=== PATIENT | male | born 1960 | race Caucasian/White ===

== ENCOUNTER 2017-04-09 20:09 | Emergency (ER) | payer BC ==
[2017-04-09] MEDS ORDERED: RX INFO: IV CONTRAST WAS GIVEN 1 EACH MISC MISCELLANE PRN (20:24)
[2017-04-09] MEDS ORDERED: DIPH,PERTUS(ACELL)TETVAC-LF 0.5 ML VIAL IM ONE (20:25)
--- NOTE | 2017-04-09 20:36 | ED ---
Fall HPI - General Source: patient, EMS, RN notes reviewed - History of Present Illness MD Complaint: fall <Rodo Ortiz - Last Filed: 04/09/17 21:12> <Rao Dey - Last Filed: 04/09/17 22:34> - General Stated Complaint: Fall Time Seen by Provider: 04/09/17 20:09 - History of Present Illness Initial Comments: This is a 56-year-old male history of hypercholesterolemia no other major medical issues who apparently fell out of a tree stand sometime yesterday was about 12 feet off the ground he states his safety her broke he fell about 12 feet landing on his feet he fell backwards and landed on a log. He had some pain to the right side of his upper back. He denies any head neck or other injuries. The patient apparently went about his business went home and slept last night got up today and apparently went out again but now complain of increased pain to his right upper chest also some ecchymosis was noted around his eyes and he had swelling to his right hand. He still does not believe he hit his head or headache neck pain no abdominal pain no loss of function is upper or lower extremities. He was given morphine and route by paramedics. He is not ALLERGIC last tetanus shot was. He original injury occurred over 24 hours ago. (Rodo Ortiz) - Related Data Home Medications Medication Instructions Recorded Confirmed No Known Home Medications [No 04/09/17 04/09/17 Known Home Medications] Allergies Allergy/AdvReac Type Severity Reaction Status Date / Time No Known Allergies Allergy Verified 04/09/17 20:26 Review of Systems ROS Other: All systems not noted in ROS Statement are negative. <Rodo Ortiz - Last Filed: 04/09/17 21:12> ROS Other: All systems not noted in ROS Statement are negative. <Rao Dey - Last Filed: 04/09/17 22:34> ROS Statement: Those systems with pertinent positive or pertinent negative responses have been documented in the HPI. General Exam Limitations: no limitations General appearance: alert, lethargic Head exam: Present: normocephalic, other (Lateral orbital ecchymosis no step- off no crepitation or abrasion seen over the right forehead and temporal scalp no open wounds requiring suturing repair no formed by step-off or crepitation) Eye exam: Present: PERRL ENT exam: Present: normal exam, mucous membranes moist Neck exam: Present: normal inspection, other (C-collar is present). Absent: tenderness, lymphadenopathy Respiratory exam: Present: chest wall tenderness (Is palpation of the right lateral and posterior superior chest wall but no step-off or crepitation), decreased breath sounds Cardiovascular Exam: Present: regular rate, normal rhythm, normal heart sounds. Absent: systolic murmur, diastolic murmur, rubs, gallop, clicks GI/Abdominal exam: Present: soft, normal bowel sounds. Absent: distended, tenderness, guarding, rebound, rigid Rectal exam: Present: deferred Extremities exam: Present: full ROM, tenderness, normal capillary refill, other (Some ecchymosis and edema to the right dorsal hand no step-off or crepitation) Back exam: Present: normal inspection, full ROM. Absent: tenderness, CVA tenderness (R), CVA tenderness (L), muscle spasm, paraspinal tenderness, vertebral tenderness Psychiatric exam: Present: normal affect, normal mood Skin exam: Present: warm, dry, normal color. Absent: intact <Rodo Ortiz - Last Filed: 04/09/17 21:12> <Rao Dey - Last Filed: 04/09/17 22:34> - General Exam Comments Initial Comments: This is a well up well-nourished awake alert oriented 3 male [place] Coma Scale 15 (Rodo Ortiz) Course <Rodo Ortiz - Last Filed: 04/09/17 21:12> <Rao Dey - Last Filed: 04/09/17 22:34> Vital Signs 04/09/17 04/09/17 04/09/17 20:25 21:01 21:26 Temperature 99.7 F H Pulse Rate 81 74 71 Respiratory 16 16 16 Rate Blood Pressure 133/79 134/71 121/71 O2 Sat by Pulse 97 100 100 Oximetry 04/09/17 22:00 Temperature Pulse Rate 69 Respiratory 16 Rate Blood Pressure 134/81 O2 Sat by Pulse 98 Oximetry Patient and the family requested to be transferred to [facility], called and spoke with Dr. Williamson ER physician at [facility], she said she will discuss this with our trauma surgeon and then she will call me back, [facility] called me back at 2209, they are unable to accept the patient because they don't have all the necessary services they recommend that we call [facility]. Family wanted to go to [facility], but unfortunately [facility] does not take ER to ER transfer is now at 2214 I am trying to get hold of [facility] in the meantime patient had Rocephin 2 g IV pain medications and he also had his tetanus updated . (Rao Dey) - Reevaluation(s) Reevaluation #1: 04/09/17 21:12 The patient's case is endorsed to Dr. Dey at our shift change (Rodo Ortiz) 04/09/17 22:[address] Jose from [facility] accepted the patient him a patient is hemodynamically stable his pulse is 70 respiratory rate is 16 blood pressure 134/76 GCS is 15 H the ambulance and be heading to [facility] , patient and the family are agreeable with (Rao Dey) Medical Decision Making - Lab Data Result diagrams: 04/09/17 20:15 04/09/17 20:15 - EKG Data -: EKG Interpreted by Me EKG shows normal: sinus rhythm (Sinus rhythm rate 78. Interval 144 QRS 16 QT since QTC of 42/458 and complete right bundle-branch block no acute ST-T wave changes artifact is present) <Rodo Ortiz - Last Filed: 04/09/17 21:12> - Lab Data Result diagrams: 04/09/17 20:15 04/09/17 20:15 <Rao Dey - Last Filed: 04/09/17 22:34> - Lab Data Lab Results 04/09/17 04/09/17 04/09/17 Range/Units 20:15 20:15 20:15 WBC (3.8-10.6) k/uL RBC (4.30-5.90) m/uL Hgb (13.0-17.5) gm/dL Hct (39.0-53.0) % MCV (80.0-100.0) fL MCH (25.0-35.0) pg MCHC (31.0-37.0) g/dL RDW (11.5-15.5) % Plt Count (150-450) k/uL Neutrophils % % Lymphocytes % % Monocytes % % Eosinophils % % Basophils % % Neutrophils # (1.3-7.7) k/uL Lymphocytes # (1.0-4.8) k/uL Monocytes # (0-1.0) k/uL Eosinophils # (0-0.7) k/uL Basophils # (0-0.2) k/uL PT (9.0-12.0) sec INR (<1.2) APTT (22.0-30.0) sec Sodium 138 (137-145) mmol/L Potassium 4.6 (3.5-5.1) mmol/L Chloride 104 (98-107) mmol/L Carbon Dioxide 24 (22-30) mmol/L Anion Gap 10 mmol/L BUN 25 H (9-20) mg/dL Creatinine 1.20 (0.66-1.25) mg/dL Est GFR (MDRD) Af Amer >60 (>60 ml/min/1.73 sqM) Est GFR (MDRD) Non-Af >60 (>60 ml/min/1.73 sqM) Glucose 108 H (74-99) mg/dL Calcium 9.7 (8.4-10.2) mg/dL Total Bilirubin 1.1 (0.2-1.3) mg/dL AST 81 H (17-59) U/L ALT 57 (21-72) U/L Alkaline Phosphatase 68 (38-126) U/L Total Creatine Kinase 2147 H (55-170) U/L CK-MB (CK-2) 18.1 H* (0.0-2.4) ng/mL CK-MB (CK-2) Rel Index Troponin I <0.012 (0.000-0.034) ng/mL Total Protein 7.0 (6.3-8.2) g/dL Albumin 4.4 (3.5-5.0) g/dL Serum Alcohol <10 mg/dL Blood Type A Positive Blood Type Confirm Blood Type Recheck CABO Indicated Antibody Screen NEGATIVE Spec Expiration Date 04/12/2017 - 231404/09/17 04/09/17 04/09/17 Range/Units 20:15 20:15 21:52 WBC 13.7 H (3.8-10.6) k/uL RBC 4.92 (4.30-5.90) m/uL Hgb 15.0 (13.0-17.5) gm/dL Hct 44.6 (39.0-53.0) % MCV 90.5 (80.0-100.0) fL MCH 30.4 (25.0-35.0) pg MCHC 33.6 (31.0-37.0) g/dL RDW 14.2 (11.5-15.5) % Plt Count 302 (150-450) k/uL Neutrophils % 81 % Lymphocytes % 11 % Monocytes % 6 % Eosinophils % 1 % Basophils % 0 % Neutrophils # 11.1 H (1.3-7.7) k/uL Lymphocytes # 1.5 (1.0-4.8) k/uL Monocytes # 0.9 (0-1.0) k/uL Eosinophils # 0.1 (0-0.7) k/uL Basophils # 0.0 (0-0.2) k/uL PT 11.1 (9.0-12.0) sec INR 1.1 (<1.2) APTT 24.9 (22.0-30.0) sec Sodium (137-145) mmol/L Potassium (3.5-5.1) mmol/L Chloride (98-107) mmol/L Carbon Dioxide (22-30) mmol/L Anion Gap mmol/L BUN (9-20) mg/dL Creatinine (0.66-1.25) mg/dL Est GFR (MDRD) Af Amer (>60 ml/min/1.73 sqM) Est GFR (MDRD) Non-Af (>60 ml/min/1.73 sqM) Glucose (74-99) mg/dL Calcium (8.4-10.2) mg/dL Total Bilirubin (0.2-1.3) mg/dL AST (17-59) U/L ALT (21-72) U/L Alkaline Phosphatase (38-126) U/L Total Creatine Kinase (55-170) U/L CK-MB (CK-2) (0.0-2.4) ng/mL CK-MB (CK-2) Rel Index Troponin I (0.000-0.034) ng/mL Total Protein (6.3-8.2) g/dL Albumin (3.5-5.0) g/dL Serum Alcohol mg/dL Blood Type Blood Type Confirm A Positive Blood Type Recheck Antibody Screen Spec Expiration Date Disposition <Rodo Ortiz - Last Filed: 04/09/17 21:12> - Out of Hospital Transfer - Req. Specs Out of Hospital Transfer - Requested Specifics: Other Emergency Center (He said would be transfer to [facility], accepting physician is Dr. 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
[2017-04-09 20:37] VITALS: RESP 16
[2017-04-09 20:44] LABS: Basophils % (A) 0 %; CH 30.2; CHCM 33.6; Eosinophils # (A) 0.1 k/uL (0-0.7); Eosinophils % (A) 1 %; HCT 44.6 % (39.0-53.0); HDW 2.45; Luc # (Auto) 0.05; Luc % (Auto) 0; Lymphocytes # (A) 1.5 k/uL (1.0-4.8); Lymphocytes % (A) 11 %; MCH 30.4 pg (25.0-35.0); MCHC 33.6 g/dL (31.0-37.0); MCV 90.5 fL (80.0-100.0); Mean Platelet Volume 7.8; Monocytes # (A) 0.9 k/uL (0-1.0); Monocytes % (A) 6 %; Neutrophils # (A) 11.1 k/uL (1.3-7.7); Neutrophils % (A) 81 %; RBC 4.92 m/uL (4.30-5.90); RDW 14.2 % (11.5-15.5); WBC 13.7 k/uL (3.8-10.6); WBC (Perox) 13.89
--- NOTE | 2017-04-09 20:51 | XR ---
EXAMINATION TYPE: XR chest 1V portable DATE OF EXAM: 04/09/2017 Comparison: Clinical History: 56-year-old male with trauma, fell from a tree stand yesterday, generalized pain Findings: Heart is normal size. Aorta and pulmonary vasculature within normal limits. Normal variant azygos fis sure. There is some focal patchy peripheral right basilar opacity. Also, somewhat thickened appearanc e to the superior mediastinum. No pleural effusion or pneumothorax. Impression: 1. Some patchy peripheral right basilar atelectasis or contusion. 2. Slightly thickened appearance to the superior mediastinum probably projectional due to AP techniqu e. If chest pain or concern for aneurysm or acute aortic pathology, CT can be performed.
--- NOTE | 2017-04-09 20:52 | XR ---
EXAMINATION TYPE: XR pelvis AP view DATE OF EXAM: 04/09/2017 COMPARISON: NONE HISTORY: 56-year-old male with trauma after falling out of tree stand, generalized pain TECHNIQUE: Single view FINDINGS: Hips appear symmetric and intact. Pubic symphysis is intact. Small delineation to the arcuate lines o f the sacrum. SI joints are intact. No acute fracture or dislocation seen. IMPRESSION: No acute osseous abnormality seen.
[2017-04-09 20:53] LABS: ALT 57 U/L (21-72); AST 81 U/L (17-59); Alcohol <10 mg/dL; Alkaline Phosphatase 68 U/L (38-126); Anion Gap 10 mmol/L; Blood Urea Nitrogen 25 mg/dL (9-20); Calcium 9.7 mg/dL (8.4-10.2); Carbon Dioxide 24 mmol/L (22-30); Chloride 104 mmol/L (98-107); Glucose 108 mg/dL (74-99); INR 1.1 (<1.2); Non-African American GFR(MDRD) >60 (>60 ml/min/1.73 sqM); Partial Thromboplastin Time 24.9 sec (22.0-30.0); Potassium 4.6 mmol/L (3.5-5.1); Prothrombin Time 11.1 sec (9.0-12.0); Sodium 138 mmol/L (137-145); Total Bilirubin 1.1 mg/dL (0.2-1.3)
[2017-04-09 21:10] LABS: Creatine Kinase 2147 U/L (55-170)
[2017-04-09 21:15] LABS: Troponin I <0.012 ng/mL (0.000-0.034)
[2017-04-09 21:24] LABS: Creatine Kinase MB 18.1 ng/mL (0.0-2.4)
--- NOTE | 2017-04-09 21:31 | CT ---
EXAMINATION TYPE: CT brain christiana garland DATE OF EXAM: 04/09/2017 COMPARISON: NONE HISTORY: 56-year-old male trauma, pain, fall injury. CT DLP: 1424.9 mGycm Automated exposure control for dose reduction was used. Technique: Examination of the head was done in axial plane without intravenous contrast. Coronal and sagittal reconstructions performed. CT of the cervical spine was obtained in axial plane without intravenous injection of contrast mater ial. Coronal and sagittal reformatted images were obtained from the axial views for evaluation of f ractures, spinal alignment and canal. FINDINGS: Head: There is a mildly comminuted and mildly depressed right frontal bone fracture, additional fracture in the coronal plane along the parietal bone and extending down to the squamous portion of the temporal bone. The zygomatic arch is intact but there are fractures of the lateral wall the right orbit and r ight supraorbital rim, orbital roof and right nasal bone. Fracture extends along the anterior wall of the right frontal sinus. There is an additional fracture on the right base of the skull extending through the right mandibular fossa along the anterior portion of the petrous bone. There is secondary partial opacification withi n the right middle ear cavity. Suggestion of some layering hemorrhage within the right maxillary sinu s. There proximally 5 foci of right frontal lobe intraparenchymal hematoma, largest measuring 1.3 cm. Ad ditional extra-axial acute epidural hemorrhage measuring 1.9 x 0.9 cm along the anterior inferior rig ht frontal lobe. Some foci of intraparenchymal air tracking from the right frontal sinus. Associated vasogenic edema with mild sulcal effacement anterior inferior right frontal lobe but no he rniation or midline shift. No hydrocephalus or effacement of basal subarachnoid cisterns. Yi-white matter differentiation is maintained. Extensive soft tissue contusion along the right periorbital and right temporal region as well as the lateral right convexity of the head. Cervical spine: No cranial cervical junction of the body, predental space widening, or prevertebral soft tissue swell ing. No malalignment of the cervical spine. No acute fracture of the cervical spine. Moderate disc/endplate degenerative change with uncovertebral joint and facet arthropathy. Changes ar e greatest at C5-C6 and C6-C7 where disc osteophyte complexes cause moderate spinal canal stenosis, p ossible moderate to severe at C6-C7. Variable moderate neuroforaminal stenoses throughout. Sagittal and coronal reformatted images confirm above findings. COMBINED IMPRESSION: 1. Comminuted mildly depressed right frontal bone fractures extending to involve the squamosal portio n of the temporal bone, greater sphenoid wing, superior and lateral orbital wall, anterior wall of th e right frontal sinus, and right nasal bone. 2. Additional fracture of the right parietal bone coursing in the coronal plane. Fracture extends earl ng the right skull base involving the mandibular condylar fossa and with a transverse fracture of the anterior portion of the right temporal bone. Secondary partial opacification of the right middle ear cavity. 3. There are approximately 5 associated intraparenchymal hematomas in the right frontal lobe measurin g up to 1.3 cm with associated vasogenic edema and a small 1.9 x 0.9 cm right frontal epidural hemato ma. 4. While there is secondary sulcal effacement, there is no herniation or midline shift at this time. 5. No acute fracture or malalignment of the cervical spine. Moderate spondylotic changes especially a t C5-C6 and C6/C7 where there is canal narrowing and neuroforaminal stenosis. Critical findings called to Dr. Ortiz in the ER at 9:20 PM.
--- NOTE | 2017-04-09 21:36 | CT ---
EXAMINATION TYPE: CT ChestAbdPelvis w con DATE OF EXAM: 04/09/2017 COMPARISON: NONE HISTORY: 56-year-old male with pain after Fall injury. TECHNIQUE: Contiguous axial scanning of the chest, abdomen, and pelvis performed with IV Contrast, pa tient injected with 100 mL of Omnipaque 300. Coronal/sagittal reconstructions performed. CT DLP: 592.4 mGycm Automated exposure control for dose reduction was used. FINDINGS: Chest: Heart is normal size without pericardial effusion. Aorta is normal caliber with conventional arch ves arcenio branching anatomy. No evidence for aortic dissection or aneurysm. No mediastinal hematoma. No thoracic lymphadenopathy. Mild bilateral gynecomastia. Normal variant azygos fissure. There is some patchy opacity at the peripheral right base. There may b e trace effusion but no pneumothorax. Nondisplaced fractures of the right posterior fourth through ninth ribs. No segmental rib fractures s een. ABDOMEN: No focal liver lesion or biliary ductal dilatation. Gallbladder, adrenal glands, kidneys, spleen, and pancreas show no gross abnormal body. There is mild fat stranding and edema along the second portion of the duodenum, axial image 69. No dilated small bowel, free fluid, or free air otherwise seen. Normal appendix. Mild scattered stool. No pericolonic inflammatory change. Pelvis: Bladder partially urine distended. Pelvic phleboliths. No abnormal fluid collection in the pelvis or pelvic lymphadenopathy. Bones: Right-sided rib fractures posteriorly fourth through ninth as mentioned above. Mild degenerative thomason ges at the hips. Additional chronic bilateral L5 pars defects with grade 2, approaching grade 3 anterolisthesis at L5- S1. No additional acute fracture is identified. IMPRESSION: 1. Nondisplaced fractures of the right posterior fourth through ninth ribs. Underlying patchy atelect asis or very mild pulmonary contusion at the peripheral right base. 2. Mild fat stranding and edema along the second portion of the duodenum could represent underlying i ntestinal injury/contusion. No free air or dependent free fluid in the hepatorenal recess or pelvis. Close follow-up as clinically indicated. 3. Incidental: Bilateral L5 pars defects with grade 2 anterolisthesis at L5-S1.
[2017-04-09] MEDS ORDERED: cefTRIAXone IN SWFI 2,000 MG/20 ML SYRINGE IVP ONE (22:00)
--- NOTE | 2017-04-09 22:01 | XR ---
EXAMINATION TYPE: XR hand limited bilateral DATE OF EXAM: 04/09/2017 COMPARISON: NONE HISTORY: 56-year-old male with pain after fall injury TECHNIQUE: 2 views each hand FINDINGS: On these 2 views, no acute fracture, subluxation, or dislocation is identified on either side. Dorsal soft tissue swelling on the right. IMPRESSION: Dorsal soft tissue swelling on the right. No acute osseous abnormality seen on either side. Only 2 vi ews of each hand were obtained.
[2017-04-09 23:12] VITALS: BP 123/67; PULSE 68; TEMP 98.6
== END 2017-04-09 23:00 | disposition other institution (70) ==
LOC: EC 20:09
DX: S02.0XXA Fracture of vault of skull, initial encounter for closed fracture (principal); S02.81XA Fracture of other specified skull and facial bones, right side, initial encounter for closed fracture; S06.2X9A Diffuse traumatic brain injury with loss of consciousness of unspecified duration, initial encounter; S60.221A Contusion of right hand, initial encounter; R40.2412 Glasgow coma scale score 13-15, at arrival to emergency department; Z23 Encounter for immunization; W17.89XA Other fall from one level to another, initial encounter; Y93.89 Activity, other specified
CPT/HCPCS: 36415; 93005; 86900; 86901; 80053; 82550; 82553; 84484; 85025; 85610; 85730; 86850; 80320; 71010; 73120; 72170; 72125; 70450; 71260; 74177; 90715; 99285; 96374; 90471; J0696